=== PATIENT | female | born 1950 | race Two or more races ===

== ENCOUNTER 2025-01-15 20:30 | Emergency (ER) | payer OTHER, SELFPAY ==
[2025-01-15 20:39] VITALS: BP 173/85; PULSE 103; RESP 20; TEMP 36.9; O2SAT 97
[2025-01-15] MEDS: PREGABALIN 75 MG CAPSULE 150 MG PO (21:15)
--- NOTE | 2025-01-15 21:16 | EDNOTE_ITS ---
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 Patient is currently on 75 mg pregabalin (past 7 weeks) and Tramadol w/o relief. In the past week, patient has had worsening skin pain from where shingles was. Daughter with her states no new AMS, slurred spe ech, or change from baseline. Limitations: no limitations Related Data Home Medications ?Medication ?Instructions ?Recorded ?Confirmed lisinopril 40 mg tablet 40 mg PO QDAY 12/14/1812/14 metformin 1,000 mg tablet 1,000 mg PO BID 12/14/1809/21 Allergies Allergy/AdvReac Type Severity Reaction Status Date / Time No Known Allergies Allergy Verified 12/14/18 14:37 Review of Systems Review of Systems Systems Reviewed: All systems reviewed, normal except as documented Constitutional Constitutional: Reports system reviewed and no additional complaints, except as documented, Denies fever(s) and Denies headache(s) ENT Ears, Nose, Mouth, and Throat: Denies disequilibrium and Denies headache(s) Cardiovascular Cardiovascular: Reports system reviewed and no additional complaints, except as documented, Denies chest pain and Denies dyspnea Respiratory Respiratory: Reports system reviewed and no additional complaints, except as documented, Denies cough and Denies dyspnea Gastrointestinal Gastrointestinal: Reports system reviewed and no additional complaints, except as documented, Denies abdominal pain, Denies nausea and Denies vomiting Integumentary/Breasts Skin/Breast: Reports as per HPI and Reports skin pain Neurologic Neurologic: Reports system reviewed and no additional complaints, except as documented, Denies confusion, Denies disequilibrium and Denies headache(s) Psychiatric Psychiatric: Denies confusion Past Medical History Social History SMOKING STATUS: Never smoker ED Exam General Limitations: Present no limitations General appearance: Present alert and in no apparent distress Head Head exam: Present atraumatic and other (L upper fading facial rash) Eye Eye exam: Present normal appearance, PERRL and EOMI ENT ENT exam: Present normal exam, normal oropharynx and mucous membranes moist Neck Neck exam: Present normal inspection, full ROM and trachea midline Chest Chest inspection: Present normal inspection and symmetric chest wall rise Respiratory Respiratory exam: Present normal lung sounds bilaterally Cardiovascular Cardiovascular exam: Present regular rate, normal rhythm and normal heart sounds Abdominal Exam Abdominal exam: Present soft and normal bowel sounds Extremities Exam Extremities exam: Present normal inspection and full ROM Back Exam Back exam: Present normal inspection and full ROM Neurological Exam Neurological exam: Present alert, oriented X3 and CN II-XII intact Psychiatric Psychiatric exam: Present normal affect and normal mood Skin Skin exam: Present warm, dry, intact and normal color Course Course Course Narrative: 74F with history of HTN, DM, and 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 Patient is currently on 75 mg pregabalin (past 7 weeks) and Tramadol w/o relief. In the past week, patient has had worsening skin pain from where shingles was. Daughter with her states no new AMS, slurred speech, or change from baseline. Physical exam reveals normal pupil response and EOM. Some residual R-sided weakness, but otherwise intact II-XII CN exam. Fading red rash on L upper face. Patient is afebrile, calm, and alert. Pain improved with increased dose of pregabalin. Patient's daughter wanted another CT to ensure no bleed. CT normal. Quality Measures none Orders Category Date Time Status CT head/brain wo con Stat Exams 01/15/25 21:56 Completed Pregabalin [Lyrica] Med 01/15/25 20:57 Discontinued 150 mg PO X1 ONE Vital Signs Vital signs: Vital Signs Temperature 98.5 F 01/15/25 20:39 Pulse Rate 103 H 01/15/25 20:39 Respiratory Rate 20 01/15/25 20:39 Blood Pressure 173/85 H 01/15/25 20:39 Pulse Oximetry (%) 97 01/15/25 20:39 Oxygen Delivery Method Room Air 01/15/25 20:39 O2 at 97% on RA and WNLs MDM Patient data External records reviewed:: None Clinical information provided by:: patient and family Social determinants that could affect healthcare access:: none Patient has the following chronic illnesses:: DM, HTN, CVA How is presenting disease/condition affected by chronic disease/condition?: exacerbated by Evaluation data The following diagnostics were reviewed and interpreted by me:: other (specify) (none) Lab and/or radiology exams considered but not ordered:: not ordered Interpretation Summary: n/a Medications Medications considered but not ordered:: ordered Medication administrations:: Medication Administration History Discontinued Medications Pregabalin (Pregabalin 75 Mg Capsule) 150 mg PO X1 ONE Stop: 01/15/25 20:58 Last Admin: 01/15/25 21:15 Dose: 150 mg Documented By: KF above Consultations Consultation(s) initiated? (list below): No Diagnosis Differential Diagnosis ED Complaint MDM: post-herpetic neuralgia, CVA/TIA, health screening Most likely diagnosis given after review of the tests above:: post-herpetic neuralgia Admission Indicated Admission indicated?: not indicated Explain why admission is indicated or not indicated:: outpatient Admission Request Was there a request for admission?: No Disposition Plan Disposition Plan: Discharge Discharge Attestation Discharge Attestation: The patient and all family members were given an opportunity to ask questions and understood the discharge instructions. Discharge instructions specifically effects, indications for sooner follow up or return to the emergency department, and the expected course of current diagnosis. Patient condition: Stable Medical Decision Making Differential Diagnosis Differential Diagnosis: post-herpetic neuralgia, CVA/TIA, health screening Discharge Plan Plan Patient Disposition: HOME (Self Care) Disposition Comment: Stable Prescriptions/Referrals Prescriptions/Med Rec: No Action metformin 1,000 mg Tablet 1,000 mg PO BID lisinopril 40 mg Tablet 40 mg PO QDAY Referrals: No Primary/Family,Physician [Primary Care Provider] - In 1 week Problem List Clinical Impression: Post herpetic neuralgia Patient/Caregiver Discharge Instructions Additional Instructions: Please follow-up with PCP within 24-48 hours and return immediately if symptoms worsen. Can ask about increasing dose of Lyrica as it appears to lessen pain. Can also ask about other potential treatments such as Cymbalta, topical capsaicin, etc. Print Language: Citizen Of [place] Stand Alone Forms: Patient Portal Info Letter DOUGLAS/LISA Supervising Physician DOUGLAS/LISA Supervising Physician: Dr. Stallworth
--- NOTE | 2025-01-15 21:56 | XR_ITS ---
Examination: CT brain head without contrast. 2-D sagittal coronal reconstructions Date and time of exam:January 15 thousand 25 1029 hrs. Indications: Altered mental status encephalopathy this one week CTDI: vol (mGy):46.3 DLP: (mGycm):923 Technique: Multiple CT axial sections of the brain have been obtained, 5 mm slice thickness. Contrast has not been administered. 2-D sagittal, coronal reconstructions have been obtained Low dose protocols were performed. One or more of the following dose reduction techniques were used; automated exposure control, adjustment of the mA and/or KV according to patient size, use of iterative reconstruction technique. Findings: No significant ventricular enlargement. Areas of encephalomalacia in both posterior parietal lobes Intra-axial or extra-axial hemorrhage density is not seen. No mass effect or midline shift Basal cisterns are not remarkable. Fourth ventricle is midline. Cranial vault intact. Impression: Negative for acute hemorrhage, mass effect or midline shift As clinically warranted, brain MRI follow-up would best assess for encephalitis
== END 2025-01-15 23:24 | disposition home or self-care (01) ==
PROVIDERS: Emergency Provider Emergency Medicine
DX: B02.29 Other postherpetic nervous system involvement (principal); E11.9 Type 2 diabetes mellitus without complications; I10 Essential (primary) hypertension; I69.351 Hemiplegia and hemiparesis following cerebral infarction affecting right dominant side
CPT/HCPCS: 70450; 99284; A9270

== ENCOUNTER → 2025-11-02 | Outpatient (CLI) | payer MEDICAID, SELFPAY ==
--- NOTE | 2025-11-02 07:00 | XR_ITS ---
Study: Brain MRI. INDICATION: Upper extremity numbness with pain in neck and shoulders. Paresthesias. Cervical radiculopathy. TECHNIQUE: Multisequence triplanar MRI of the brain without gadolinium. 403 images 0733 hours 02 November 2025. FINDINGS: The lateral ventricles are normal in size and contour. There is no midline shift, intracranial bleed, mass, cortical edema or focus of restricted diffusion. All major arterial flow voids are present as visualized on the T2 and SWI MIPS sequences. There is a diffuse area of encephalomalacia involving the posterior occipital and parietal cortices and white matter at the midline. The injury extends further into the left parietal white matter than on the right. No other similar defect is noted elsewhere in the head. There is mild cortical atrophy. The FLAIR sequence demonstrates numerous punctate high signal foci in the pruitt radiata bilaterally. On the left, however in slice 18 of the FLAIR sequence, there are 2, and possibly a third small doughnut-shaped lesions in the white matter which measure up to 5.1 mm short axis. The sella turcica is normal in volume. Pituitary tissue is minimal and most of the sella is occupied by cerebrospinal fluid density. The scalp, skull and mastoid air cells are normal in appearance. There is mild mucoperiosteal thickening in the ethmoid sinus. Impression: 1. Impacted injury of the occiput and parietal regions. 2. No acute intracranial abnormality. 3. Small vessel white matter disease. 4. Minimal reactive ethmoid sinusitis.
--- NOTE | 2025-11-02 07:30 | XR_ITS ---
Examination: MRI cervical spine without intravenous contrast Date and time of exam: November 02, 2025, 0733 hours INDICATIONS: Neck pain radiating to the shoulders numbness in the arms months Technique: Multiple axial and sagittal sections of the cervical spine to been obtained. T2 weighted sagittal sections, TR 3, 270, TE 117 T1-weighted sagittal sections, TR 500, TE 11 T1-weighted axial sections, TR 607, TE 12, axial sections TR 18, TE 27 and T2 weighted transverse sections, TR 3920, TE 122. Findings: Satisfactory alignment cervical vertebral bodies Advanced disc narrowing C5-C6 Diffuse cervical disc desiccation Mild increased signal in the cervical cord No cervical fracture C2-C3 no disc protrusion C3-C4 2 mm central disc bulge C4-C5 2 mm central disc bulge C5-C6 2 mm central osteophyte disc complex, moderate bilateral neuroforaminal stenosis C6-C7 3 mm right paracentral subarticular osteophyte disc complex, moderate left neural foraminal stenosis C7-T1 advanced left neuroforaminal stenosis IMPRESSION: Advanced degenerative disc disease C5-C6 C5-C6 2 mm central osteophyte disc complex, moderate bilateral neural foraminal stenosis C6-C7 3 mm right paracentral subarticular osteophyte disc complex, moderate left neural foraminal stenosis. C7-T1 advanced left neuroforaminal stenosis
== END | disposition home or self-care (01) ==
LOC: SMRI 06:36
PROVIDERS: PCP Physician Assistant
DX: M50.322 Other cervical disc degeneration at C5-C6 level (principal); M25.78 Osteophyte, vertebrae; M48.02 Spinal stenosis, cervical region; S09.90XA Unspecified injury of head, initial encounter; X58.XXXA Exposure to other specified factors, initial encounter; J32.2 Chronic ethmoidal sinusitis
CPT/HCPCS: 70551; 72141